=== PATIENT | female | born 1995 | race African-American/Black ===

== ENCOUNTER 2018-06-28 15:42 | Emergency (ER) | payer OTHER ==
--- NOTE | 2018-06-28 16:00 | EDPHY ---
H & P Time Seen by Provider: 06/28/18 15:53 HPI/ROS: CHIEF COMPLAINT: M1 suicidal ideation HISTORY OF PRESENT ILLNESS: 22-year-old female history of bipolar disorder in the ER on an M1 hold after she shared a note on her telephone with therapist stating that she was experiencing suicidal ideation with plan to jump in front of a train or other vehicle. She denies hallucinations. Denies recent self- injurious behavior prior history of cutting behavior, none recently. REVIEW OF SYSTEMS: 10 systems reviewed and negative with the exception of the elements mentioned in the history of present illness PAST MEDICAL & SURGICAL HISTORY: Bipolar disorder SOCIAL HISTORY:Denies acute alcohol or drug use PHYSICAL EXAM (Prior to examination, patient consented to physical exam, hands were washed and my usual and customary physical exam procedures followed) 1) GENERAL: Well-developed, well-nourished, alert and oriented. Appears to be in no acute distress. 2) HEAD: Normocephalic, atraumatic 3) HEENT: Pupils equal, round, reactive to light bilaterally. Sclera anicteric. 4) NECK: Full range of motion, no meningeal signs. 5) LUNGS: Clear auscultation bilaterally, no wheezes, no rhonchi, no retractions. 6) HEART: Regular rate and rhythm, no murmur, no heave, no gallop. 7) ABDOMEN: No guarding, no rebound, no focal tenderness, negative McBurney's, negative Jean's, negative Rovsing's, negative peritoneal sign, 8) MUSCULOSKELETAL: Moving all extremities, no focal areas of tenderness, no obvious trauma. No peripheral edema or discoloration. 9) BACK: No CVA tenderness, no midline vertebral tenderness, no fluctuance, no step-off, no obvious trauma, no visual or palpable abnormality. 10) SKIN: No rash, no petechiae. 11) Psychiatric: Patient is oriented X 3, there is no agitation. Calm, cooperative. Flat affect. DIFFERENTIAL DIAGNOSIS: In no particular order including but not limited to depression, suicidal ideation homicidal ideation (Grover,Tristen Lilliam) Constitutional: Initial Vital Signs Temperature (C) 36.6 C 06/28/18 15:53 Heart Rate 80 06/28/18 15:53 Respiratory Rate 16 10/01/18 15:53 Blood Pressure 114/68 06/28/18 15:53 O2 Sat (%) 96 06/28/18 15:53 O2 Delivery Mode Room Air Allergies/Adverse Reactions: No Known Allergies Allergy (Unverified 06/28/18 16:06) Home Medications: Medication Instructions Recorded NK [No Known Home Meds] 06/28/18 Medical Decision Making ED Course/Re-evaluation: 1244: Patient accepted at [facility]. Emtala filled out. appropr transfer form filled out. and set up. Dr. Marcum accepts (Nils Pickett) 3:59 p.m.: Patient is on an M1 hold. Will obtain diagnostic studies and consult with mental health loader engineer. I saw this patient independently based on established practice protocols. Care of patient under supervision of secondary supervising physician Dr Collins . 4:39 p.m.: Patient medically cleared for mental health evaluation Midnight: Patient revaluated with serial exams. At this time, care turned over to Dr Pickett. Patient calm, cooperative, resting comfortably. (Tristen Ness) - Data Points Laboratory Results: Laboratory Results 06/28/18 16:02 06/28/18 16:02 Medications Given: Discontinued Medications Acetaminophen (Tylenol) 1,000 mg PO EDNOW ONE Stop: 06/28/18 22:38 Last Admin: 06/28/18 22:39 Dose: 1,000 mg Ibuprofen (Motrin) 600 mg PO EDNOW ONE Stop: 06/28/18 22:37 Last Admin: 06/28/18 22:38 Dose: 600 mg Departure - Departure Disposition: Other Psych, Not [facility] Clinical Impression: Suicidal ideation Referrals: [facility] RENDON [Other] - As per Instructions
[2018-06-28 16:19] LABS: PLATELET COUNT 322 10^3/uL (150-400)
[2018-06-28] MEDS ORDERED: IBUPROFEN 600 MG TAB PO ONE (22:36)
[2018-06-28] MEDS ORDERED: ACETAMINOPHEN 500 MG TAB PO ONE (22:37)
[2018-06-29 01:32] VITALS: BP 103/70
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
--- NOTE | 2018-06-29 05:58 | ASMTTCLDSP ---
TLC Discharge Disposition Disposition: Answers: Transfer Disposition Notes: Notes: Transfer to [facility], as pt has [place] insurance - [facility] not in network. Discharge Concerns/Recommendations: Notes: In consultation with [facility] ED physician, Nils Pickett MD and [place] on-call psychiatrist, Osito Phillips MD, both concurred that pt appears to meet 27-65 criteria requiring psychiatric hospitalization as pt appears to be at risk of harm to self due to a mental illness condition. Pt was given the 3N prohibited belongings list while in the ED. Was patient given the Answers: Not applicable Inpatient Behavioral Health Prohibited Belongings List while in the ED? Type of Hold: Answers: M1/72-hour Hold Hold initiated by: Answers: ED Physician For Transfers, Accepting [facility] Facility: For Transfers, Accepting Maxime Green MD Psychiatrist: For Transfers, Reason [place] pt - [facility] not in network. Patient is Being Transferred: Date Signed: 06/29/2018 05:58 AM Electronically Signed By:Evert Valdez
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
== END 2018-06-29 02:55 ==
LOC: EDBD 15:42
DX: R45.851 Suicidal ideations (principal); F31.9 Bipolar disorder, unspecified
CPT/HCPCS: 80305; G0480